=== PATIENT | female | born 1975 | race Caucasian/White ===

== ENCOUNTER 2020-01-19 10:39 | Day surgery (SDC) | payer MEDICAID, SELFPAY ==
[2020-01-14 17:32] LABS: PLATELET COUNT 317 x10^3mcL (130-400); RED CELL DISTRIBUTION WIDTH 13.5 % (11.5-14.5)
[2020-01-14 17:48] LABS: ALBUMIN 3.6 g/dL (3.4-5.0); ALKALINE PHOSPHATASE 100 U/L (46-116); ALT/SGPT 21 U/L (14-59); AST/SGOT 10 U/L (15-37); BILIRUBIN TOTAL 0.1 mg/dL (0.20-1.00); CALCIUM 8.4 mg/dL (8.5-10.1); CARBON DIOXIDE 27.1 mmol/L (21-32); CHLORIDE SERUM 98 mmol/L (98-107); CREATININE SERUM 0.7 mg/dL (0.6-1.0); GFR1 > 60 mL/min; GLUCOSE SERUM 296 mg/dL (74-106); POTASSIUM SERUM 3.8 mmol/L (3.5-5.1); SODIUM SERUM 134 mmol/L (136-145)
--- NOTE | 2020-01-14 18:30 | NUR ---
RECEIVED LAB RESULTS FROM LAB. FAXED TO DR GASTON MEAD'S OFFICE. CALL TO DR [facility] DR Faiza JAIMES. UPDATED WITH RESULTS. NO ADDITIONAL ORDERS AT THIS TIME.
[2020-01-14 19:06] LABS: BAND NEUTROPHIL 5 % (0-10); MONOCYTE 22 % (0-7); SEGMENTED NEUTROPHILS 17 % (37-75)
[2020-01-14 19:08] LABS: ovalocyte/elliptocyte 1+; rbc morphology (normal/abnorm) ABNORMAL (NORMAL); tear drop cell (dacryocyte) 1+
[2020-01-14 19:09] LABS: PLATELET MORPHOLOGY PLATELETS NORMAL
[~2020-01-19] VITALS: Ht 147.3 cm; Wt 65.3 kg
[2020-01-19 11:22] VITALS: BP 132/74
[2020-01-19 16:49] VITALS: BP 114/79
== END 2020-01-19 16:40 | disposition home or self-care (01) ==
LOC: DS 10:39 → OR 13:00 → DS 16:40
PROVIDERS: ATTEND Surgery
DX: Z45.2 Encounter for adjustment and management of vascular access device (principal); C50.912 Malignant neoplasm of unspecified site of left female breast; Z11.59 Encounter for screening for other viral diseases; N63.31 Unspecified lump in axillary tail of the right breast; N63.32 Unspecified lump in axillary tail of the left breast
CPT/HCPCS: A4301; J0690; J1644; J2001; J2250; J3010; J3490; J7120; Q0092; U0003-CS